=== PATIENT | male | born 1940 | race Caucasian/White ===

== ENCOUNTER 2020-11-16 11:23 | Inpatient (IN) ==
[2020-11-16] MEDS ORDERED: Acetaminophen 325 MG TABLET PO PRN (12:02)
[2020-11-16] MEDS ORDERED: Ondansetron 4 MG/2 ML VIAL IVP PRN (12:02)
[2020-11-16] MEDS ORDERED: Dextrose Gel 15 GM/37.5 ML TUBE PO PRN ×2 (12:05)
[2020-11-16] MEDS ORDERED: *HR* Dextrose 50 % in Water (Vial) 50 ML VIAL IVP PRN (12:05)
[2020-11-16] MEDS ORDERED: D5% in Water 1,000 ML IVC PRN (12:05)
[2020-11-16] MEDS: Ipratropium 1 PUFF INHALER IH SCH ×3 (15:16→23:51)
[2020-11-16] MEDS: *HR* Rivaroxaban 10 MG TABLET PO SCH (17:21)
[2020-11-16] MEDS: Insulin LISPRO 300 UNITS/3 ML VIAL SUBQ SCH (17:22)
[2020-11-16] MEDS: Topiramate 25 MG TABLET PO SCH (21:15)
[2020-11-16] MEDS: Mirtazapine 15 MG TABLET PO SCH (21:15)
[2020-11-16] MEDS: QUEtiapine Fumarate 25 MG TABLET PO SCH (21:15)
[2020-11-16] MEDS: Insulin DETEMIR 100 UNIT/ML X5UNITS SUBQ SCH (21:16)
[2020-11-17] MEDS: Ipratropium 1 PUFF INHALER IH SCH ×6 (04:16→23:44)
[2020-11-17 06:03] LABS: Eosinophils % 0.1 %; Hematocrit 35.4 % (37.5-50.1); Immature Granulocytes % 0.5 % (0-4); Lymphocytes # 0.5 K/mcL (0.6-4.6); Lymphocytes % 6.2 %; Mean Corpuscular HGB Conc 33.9 g/dL (31.6-35.5); Mean Corpuscular Hemoglobin 31.7 pg (28.0-33.3); Mean Corpuscular Volume 93.4 fL (83.0-100.0); Mean Platelet Volume 11.4 fL (9.4-12.4); Monocytes # 0.4 K/mcL (0.0-1.3); Monocytes % 4.5 %; Neutrophils # 7.3 K/mcL (1.6-8.9); Red Blood Count 3.79 M/mcL (4.19-5.50); Segmented Neutrophils % 88.7 %; White Blood Count 8.2 K/mcL (4.3-11.1)
[2020-11-17 06:05] LABS: Platelet Count 82 K/mcL (140-400)
[2020-11-17 06:22] LABS: Alanine Aminotransferase 14 Units/L (7-52); Albumin 2.4 g/dL (3.5-5.7); Albumin/Globulin Ratio 1.3 (1.1-2.2); Alkaline Phosphatase 84 Units/L (34-104); Aspartate Amino Transferase 10 Units/L (13-39); BUN/Creatinine Ratio 44 (6-26); Bilirubin,Total 0.7 mg/dL (0.3-1.0); Blood Urea Nitrogen 36 mg/dL (8-23); Carbon Dioxide 26 mEq/L (23-29); Chloride 106 mEq/L (98-107); Globulin 1.9 g/dL (2.4-3.5); Glucose 119 mg/dL (70-105); Magnesium 1.9 mg/dL (1.6-2.6); Osmolality,Calculated 289 (280-300); Potassium 3.9 mEq/L (3.5-5.1); Sodium 135 mEq/L (136-145); Total Protein 4.3 g/dL (6.4-8.9); eGFR For African Americans > 60 (> 60); eGFR For Non-African Americans > 60 (> 60)
[2020-11-17] MEDS: Topiramate 25 MG TABLET PO SCH ×2 (08:29→20:31)
[2020-11-17] MEDS: amLODIPine 5 MG TABLET PO SCH (08:29)
[2020-11-17] MEDS: Furosemide 20 MG TABLET PO SCH (08:29)
[2020-11-17] MEDS: Finasteride 5 MG TABLET PO SCH (08:29)
[2020-11-17] MEDS: Insulin LISPRO 300 UNITS/3 ML VIAL SUBQ SCH ×3 (08:29→17:15)
[2020-11-17] MEDS: Aspirin Enteric Coated 81 MG Tablet PO SCH (08:29)
[2020-11-17 11:35] LABS: C-Reactive Protein < 5 mg/L (Less than 10)
[2020-11-17 11:54] LABS: Ferritin 337 ng/mL (20-250)
[2020-11-17] MEDS: *HR* Rivaroxaban 10 MG TABLET PO SCH (17:15)
[2020-11-17] MEDS: Insulin DETEMIR 100 UNIT/ML X5UNITS SUBQ SCH (20:31)
[2020-11-17] MEDS: Mirtazapine 15 MG TABLET PO SCH (20:31)
[2020-11-17] MEDS: QUEtiapine Fumarate 25 MG TABLET PO SCH (20:31)
[2020-11-18] MEDS: Ipratropium 1 PUFF INHALER IH SCH ×5 (04:21→20:48)
[2020-11-18] MEDS: Insulin LISPRO 300 UNITS/3 ML VIAL SUBQ SCH (09:56)
[2020-11-18] MEDS: Furosemide 20 MG TABLET PO SCH (09:57)
[2020-11-18] MEDS: Aspirin Enteric Coated 81 MG Tablet PO SCH (09:57)
[2020-11-18] MEDS: Finasteride 5 MG TABLET PO SCH (09:57)
[2020-11-18] MEDS: Topiramate 25 MG TABLET PO SCH ×2 (09:57→22:29)
[2020-11-18] MEDS: amLODIPine 5 MG TABLET PO SCH (09:57)
[2020-11-18 12:22] LABS: Basophils % 0.1 %; Eosinophils # 0.1 K/mcL (0.0-0.6); Eosinophils % 0.7 %; Hematocrit 37.4 % (37.5-50.1); Hemoglobin 12.6 g/dL (12.9-16.9); Immature Granulocytes % 0.6 % (0-4); Lymphocytes # 0.5 K/mcL (0.6-4.6); Lymphocytes % 4.5 %; Mean Corpuscular HGB Conc 33.7 g/dL (31.6-35.5); Mean Corpuscular Hemoglobin 31.8 pg (28.0-33.3); Mean Corpuscular Volume 94.4 fL (83.0-100.0); Mean Platelet Volume 11.3 fL (9.4-12.4); Monocytes # 0.5 K/mcL (0.0-1.3); Monocytes % 4.3 %; Neutrophils # 9.7 K/mcL (1.6-8.9); Red Blood Count 3.96 M/mcL (4.19-5.50); Red Cell Distribution Width 13.1 % (11.5-14.5); Segmented Neutrophils % 89.8 %; White Blood Count 10.8 K/mcL (4.3-11.1)
[2020-11-18 12:23] LABS: Platelet Count 77 K/mcL (140-400)
[2020-11-18 12:38] LABS: BUN/Creatinine Ratio 38 (6-26); Blood Urea Nitrogen 31 mg/dL (8-23); Calcium 7.7 mg/dL (8.6-10.3); Carbon Dioxide 24 mEq/L (23-29); Chloride 106 mEq/L (98-107); Glucose 224 mg/dL (70-105); Osmolality,Calculated 294 (280-300); Potassium 4.1 mEq/L (3.5-5.1); Sodium 135 mEq/L (136-145); eGFR For African Americans > 60 (> 60); eGFR For Non-African Americans > 60 (> 60)
[2020-11-18] MEDS: QUEtiapine Fumarate 25 MG TABLET PO SCH (22:29)
[2020-11-18] MEDS: Mirtazapine 15 MG TABLET PO SCH (22:29)
[2020-11-18] MEDS: Insulin DETEMIR 100 UNIT/ML X5UNITS SUBQ SCH (22:32)
[2020-11-18] MEDS: *HR* Rivaroxaban 10 MG TABLET PO SCH (22:32)
[2020-11-19] MEDS: Ipratropium 1 PUFF INHALER IH SCH ×4 (03:57→12:54)
[2020-11-19] MEDS: Insulin LISPRO 300 UNITS/3 ML VIAL SUBQ SCH ×4 (07:24→12:31)
[2020-11-19] MEDS: Aspirin Enteric Coated 81 MG Tablet PO SCH (07:43)
[2020-11-19] MEDS: amLODIPine 5 MG TABLET PO SCH (07:43)
[2020-11-19] MEDS: Furosemide 20 MG TABLET PO SCH (07:43)
[2020-11-19] MEDS: Topiramate 25 MG TABLET PO SCH (07:43)
[2020-11-19] MEDS: Finasteride 5 MG TABLET PO SCH (07:43)
[2020-11-19 11:43] VITALS: BP 124/63
[2020-11-19] MEDS ORDERED: polyethylene glycoL 3350 17 GM POWD.PACK PO SCH (14:31)
== END 2020-11-19 15:22 | disposition other institution (70) | DRG 177 ==
LOC: INPGRE 14:26
PROVIDERS: ADMIT Family Medicine; ATTEND Family Medicine

== ENCOUNTER 2020-11-18 14:22 | Inpatient (IN) ==
[2020-11-19] MEDS: *HR* Rivaroxaban 10 MG TABLET PO SCH (17:45)
[2020-11-19] MEDS: *HR* Metformin 500 MG TABLET PO SCH (20:21)
[2020-11-19] MEDS: Mirtazapine 15 MG TABLET PO SCH (20:21)
[2020-11-19] MEDS: Topiramate 25 MG TABLET PO SCH (20:22)
[2020-11-20 06:21] LABS: Basophils % 0.1 %; Eosinophils # 0.1 K/mcL (0.0-0.6); Eosinophils % 1.7 %; Hematocrit 35.9 % (37.5-50.1); Hemoglobin 11.9 g/dL (12.9-16.9); Immature Granulocytes % 0.6 % (0-4); Lymphocytes # 0.5 K/mcL (0.6-4.6); Lymphocytes % 6.3 %; Mean Corpuscular HGB Conc 33.1 g/dL (31.6-35.5); Mean Corpuscular Hemoglobin 31.2 pg (28.0-33.3); Mean Platelet Volume 11.6 fL (9.4-12.4); Monocytes # 0.4 K/mcL (0.0-1.3); Monocytes % 4.3 %; Red Blood Count 3.82 M/mcL (4.19-5.50); Red Cell Distribution Width 13.5 % (11.5-14.5); White Blood Count 8.1 K/mcL (4.3-11.1)
[2020-11-20 06:32] LABS: Platelet Count 69 K/mcL (140-400)
[2020-11-20 06:34] LABS: Platelet Estimate Decreased (Normal)
[2020-11-20 06:42] LABS: BUN/Creatinine Ratio 31 (6-26); Blood Urea Nitrogen 23 mg/dL (8-23); Calcium 7.9 mg/dL (8.6-10.3); Carbon Dioxide 25 mEq/L (23-29); Chloride 106 mEq/L (98-107); Glucose 109 mg/dL (70-105); Osmolality,Calculated 286 (280-300); Potassium 3.9 mEq/L (3.5-5.1); Sodium 136 mEq/L (136-145); eGFR For African Americans > 60 (> 60); eGFR For Non-African Americans > 60 (> 60)
[2020-11-20] MEDS: polyethylene glycoL 3350 17 GM POWD.PACK PO SCH (09:32)
[2020-11-20] MEDS: Aspirin Enteric Coated 81 MG Tablet PO SCH (09:33)
[2020-11-20] MEDS: amLODIPine 5 MG TABLET PO SCH (09:33)
[2020-11-20] MEDS: Topiramate 25 MG TABLET PO SCH ×2 (09:33→20:53)
[2020-11-20] MEDS: Multivit/Ca/Min/Fe/FA 1 TAB TABLET PO SCH (09:34)
[2020-11-20] MEDS: Furosemide 20 MG TABLET PO SCH (09:34)
[2020-11-20] MEDS: *HR* Metformin 500 MG TABLET PO SCH ×2 (09:34→20:54)
[2020-11-20] MEDS: Finasteride 5 MG TABLET PO SCH (09:34)
[2020-11-20] MEDS: *HR* Rivaroxaban 10 MG TABLET PO SCH (16:50)
[2020-11-20] MEDS: Mirtazapine 15 MG TABLET PO SCH (20:53)
[2020-11-21] MEDS: *HR* Metformin 500 MG TABLET PO SCH ×2 (08:56→20:52)
[2020-11-21] MEDS: amLODIPine 5 MG TABLET PO SCH (08:56)
[2020-11-21] MEDS: Multivit/Ca/Min/Fe/FA 1 TAB TABLET PO SCH (08:56)
[2020-11-21] MEDS: Aspirin Enteric Coated 81 MG Tablet PO SCH (08:56)
[2020-11-21] MEDS: Topiramate 25 MG TABLET PO SCH ×2 (08:56→20:52)
[2020-11-21] MEDS: Finasteride 5 MG TABLET PO SCH (08:56)
[2020-11-21] MEDS: Furosemide 20 MG TABLET PO SCH (08:56)
[2020-11-21] MEDS: polyethylene glycoL 3350 17 GM POWD.PACK PO SCH (08:57)
[2020-11-21] MEDS: *HR* Rivaroxaban 10 MG TABLET PO SCH (17:04)
[2020-11-21] MEDS: Mirtazapine 15 MG TABLET PO SCH (20:51)
[2020-11-21] MEDS: Budesonide/Formoterol 160/4.5 1 PUFF INH IH SCH (21:17)
[2020-11-22] MEDS: *HR* Metformin 500 MG TABLET PO SCH ×2 (09:24→21:36)
[2020-11-22] MEDS: Topiramate 25 MG TABLET PO SCH ×2 (09:24→21:37)
[2020-11-22] MEDS: Multivit/Ca/Min/Fe/FA 1 TAB TABLET PO SCH (09:24)
[2020-11-22] MEDS: Aspirin Enteric Coated 81 MG Tablet PO SCH (09:24)
[2020-11-22] MEDS: polyethylene glycoL 3350 17 GM POWD.PACK PO SCH (09:27)
[2020-11-22] MEDS: Furosemide 20 MG TABLET PO SCH (09:27)
[2020-11-22] MEDS: Finasteride 5 MG TABLET PO SCH (09:27)
[2020-11-22] MEDS: amLODIPine 5 MG TABLET PO SCH (09:27)
[2020-11-22] MEDS: Budesonide/Formoterol 160/4.5 1 PUFF INH IH SCH ×2 (10:19→20:24)
[2020-11-22] MEDS: *HR* Rivaroxaban 10 MG TABLET PO SCH (17:13)
[2020-11-22] MEDS: Mirtazapine 15 MG TABLET PO SCH (21:38)
[2020-11-23] MEDS: *HR* Metformin 500 MG TABLET PO SCH ×2 (09:00→21:57)
[2020-11-23] MEDS: amLODIPine 5 MG TABLET PO SCH (09:01)
[2020-11-23] MEDS: Topiramate 25 MG TABLET PO SCH ×2 (09:01→21:57)
[2020-11-23] MEDS: Multivit/Ca/Min/Fe/FA 1 TAB TABLET PO SCH (09:01)
[2020-11-23] MEDS: Finasteride 5 MG TABLET PO SCH (09:01)
[2020-11-23] MEDS: polyethylene glycoL 3350 17 GM POWD.PACK PO SCH (09:02)
[2020-11-23] MEDS: Furosemide 20 MG TABLET PO SCH (09:02)
[2020-11-23] MEDS: Aspirin Enteric Coated 81 MG Tablet PO SCH (09:02)
[2020-11-23] MEDS: Budesonide/Formoterol 160/4.5 1 PUFF INH IH SCH ×2 (11:51→21:19)
[2020-11-23] MEDS: *HR* Rivaroxaban 10 MG TABLET PO SCH (16:47)
[2020-11-23] MEDS: Mirtazapine 15 MG TABLET PO SCH (21:58)
[2020-11-24] MEDS: polyethylene glycoL 3350 17 GM POWD.PACK PO SCH (09:17)
[2020-11-24] MEDS: amLODIPine 5 MG TABLET PO SCH (09:18)
[2020-11-24] MEDS: Finasteride 5 MG TABLET PO SCH (09:18)
[2020-11-24] MEDS: Topiramate 25 MG TABLET PO SCH ×2 (09:18→21:28)
[2020-11-24] MEDS: Multivit/Ca/Min/Fe/FA 1 TAB TABLET PO SCH (09:18)
[2020-11-24] MEDS: Aspirin Enteric Coated 81 MG Tablet PO SCH (09:18)
[2020-11-24] MEDS: Furosemide 20 MG TABLET PO SCH (09:18)
[2020-11-24] MEDS: *HR* Metformin 500 MG TABLET PO SCH ×2 (09:19→21:28)
[2020-11-24] MEDS: Budesonide/Formoterol 160/4.5 1 PUFF INH IH SCH ×2 (10:48→21:47)
[2020-11-24] MEDS: *HR* Rivaroxaban 10 MG TABLET PO SCH (17:32)
[2020-11-24 19:07] LABS: Basophils % 0.2 %; Eosinophils # 0.1 K/mcL (0.0-0.6); Eosinophils % 1.1 %; Hematocrit 32.7 % (37.5-50.1); Hemoglobin 10.9 g/dL (12.9-16.9); Immature Granulocytes % 0.3 % (0-4); Lymphocytes # 0.3 K/mcL (0.6-4.6); Lymphocytes % 4.7 %; Mean Corpuscular HGB Conc 33.3 g/dL (31.6-35.5); Mean Corpuscular Hemoglobin 31.5 pg (28.0-33.3); Mean Corpuscular Volume 94.5 fL (83.0-100.0); Mean Platelet Volume 11.1 fL (9.4-12.4); Monocytes # 0.5 K/mcL (0.0-1.3); Monocytes % 7.2 %; Neutrophils # 5.5 K/mcL (1.6-8.9); Red Blood Count 3.46 M/mcL (4.19-5.50); Red Cell Distribution Width 13.5 % (11.5-14.5); Segmented Neutrophils % 86.5 %; White Blood Count 6.4 K/mcL (4.3-11.1)
[2020-11-24 19:09] LABS: Platelet Count 54 K/mcL (140-400)
[2020-11-24] MEDS: Mirtazapine 15 MG TABLET PO SCH (21:29)
[2020-11-25] MEDS: Budesonide/Formoterol 160/4.5 1 PUFF INH IH SCH (09:23)
[2020-11-25 09:48] LABS: ABG Base Excess -3 mEq/L (-2 to 3); ABG HCO3 20 mEq/L (21-27); ABG Oxygen Saturation 94 % (95-98); ABG PCO2 30 mmHg (35-45); ABG PH 7.43 pH Units (7.32-7.45); ABG PO2 67 mmHg (85-104); ABG TCO2 21 mEq/L (20-26)
[2020-11-25 10:08] LABS: Hematocrit 33.1 % (37.5-50.1); Mean Corpuscular HGB Conc 33.2 g/dL (31.6-35.5); Mean Corpuscular Hemoglobin 30.9 pg (28.0-33.3); Mean Platelet Volume 11.5 fL (9.4-12.4); Red Blood Count 3.56 M/mcL (4.19-5.50); Red Cell Distribution Width 13.4 % (11.5-14.5); White Blood Count 5.2 K/mcL (4.3-11.1)
[2020-11-25 10:10] LABS: Platelet Count 53 K/mcL (140-400)
[2020-11-25 10:20] LABS: Alanine Aminotransferase 12 Units/L (7-52); Albumin 2.4 g/dL (3.5-5.7); Albumin/Globulin Ratio 0.9 (1.1-2.2); Alkaline Phosphatase 84 Units/L (34-104); Aspartate Amino Transferase 11 Units/L (13-39); BUN/Creatinine Ratio 21 (6-26); Bilirubin,Total 0.9 mg/dL (0.3-1.0); Blood Urea Nitrogen 15 mg/dL (8-23); Calcium 8.1 mg/dL (8.6-10.3); Carbon Dioxide 21 mEq/L (23-29); Chloride 104 mEq/L (98-107); Globulin 2.6 g/dL (2.4-3.5); Glucose 214 mg/dL (70-105); Osmolality,Calculated 283 (280-300); Potassium 3.5 mEq/L (3.5-5.1); Sodium 133 mEq/L (136-145); eGFR For African Americans > 60 (> 60); eGFR For Non-African Americans > 60 (> 60)
[2020-11-25 10:29] LABS: Troponin I 0.06 ng/mL (< 0.04)
[2020-11-25] MEDS: Finasteride 5 MG TABLET PO SCH (10:50)
[2020-11-25] MEDS: *HR* Metformin 500 MG TABLET PO SCH (10:51)
[2020-11-25] MEDS: Multivit/Ca/Min/Fe/FA 1 TAB TABLET PO SCH (10:51)
[2020-11-25] MEDS: amLODIPine 5 MG TABLET PO SCH (10:52)
[2020-11-25] MEDS: Furosemide 20 MG TABLET PO SCH (10:52)
[2020-11-25] MEDS: Topiramate 25 MG TABLET PO SCH (10:52)
[2020-11-25] MEDS: polyethylene glycoL 3350 17 GM POWD.PACK PO SCH (10:53)
[2020-11-25] MEDS ORDERED: Dexamethasone 4 MG/ML VIAL IVP SCH (11:45)
[2020-11-25] MEDS: *HR* Rivaroxaban 10 MG TABLET PO SCH (11:46)
[2020-11-25 11:57] VITALS: BP 117/76
[2020-11-25] MEDS ORDERED: levoFLOXacin 750 MG/150 ML 750 MG/150 ML BAG IVPB SCH (12:00)
== END 2020-11-25 13:10 | disposition short-term general hospital (02) | DRG 177 ==
LOC: INPGRE 11-19 15:28
PROVIDERS: ADMIT Family Medicine; ATTEND Family Medicine

== ENCOUNTER 2020-12-08 10:40 | Inpatient (IN) ==
[2020-12-08] MEDS ORDERED: Acetaminophen 325 MG TABLET PO PRN (16:41)
[2020-12-08] MEDS ORDERED: Ondansetron 4 MG/2 ML VIAL IVP PRN (16:41)
[2020-12-08] MEDS ORDERED: Naloxone 0.4 MG/ML INJ IVP PRN (16:41)
[2020-12-08] MEDS ORDERED: *HR* HYDROcodone/Acet 5/325 mg TABLET PO PRN (16:41)
[2020-12-08] MEDS ORDERED: Dextrose Gel 15 GM/37.5 ML TUBE PO PRN ×2 (18:04)
[2020-12-08] MEDS ORDERED: D5% in Water 1,000 ML IVC PRN (18:04)
[2020-12-08] MEDS ORDERED: *HR* Dextrose 50 % in Water (Vial) 50 ML VIAL IVP PRN (18:04)
[2020-12-08] MEDS: Insulin LISPRO 300 UNITS/3 ML VIAL SUBQ SCH (20:33)
[2020-12-08] MEDS: Mirtazapine 15 MG TABLET PO SCH (20:34)
[2020-12-08] MEDS: *HR* Metformin 500 MG TABLET PO SCH (20:36)
[2020-12-08] MEDS: Ipratropium 1 PUFF INHALER IH SCH (20:54)
[2020-12-08] MEDS: Budesonide/Formoterol 160/4.5 1 PUFF INH IH SCH (20:54)
[2020-12-08] MEDS ORDERED: *HR* Metoprolol 5 MG/5 ML VIAL IVP PRN (21:36)
[2020-12-09] MEDS: Ipratropium 1 PUFF INHALER IH SCH ×7 (00:03→23:58)
[2020-12-09 05:05] LABS: Hematocrit 31.2 % (37.5-50.1); Hemoglobin 10.3 g/dL (12.9-16.9); Mean Corpuscular Volume 96.9 fL (83.0-100.0); Mean Platelet Volume 11.9 fL (9.4-12.4); Platelet Count 132 K/mcL (140-400); Red Blood Count 3.22 M/mcL (4.19-5.50); Red Cell Distribution Width 16.4 % (11.5-14.5); White Blood Count 13.1 K/mcL (4.3-11.1)
[2020-12-09 05:21] LABS: BUN/Creatinine Ratio 51 (6-26); Blood Urea Nitrogen 35 mg/dL (8-23); Calcium 8.6 mg/dL (8.6-10.3); Carbon Dioxide 34 mEq/L (23-29); Chloride 101 mEq/L (98-107); Glucose 71 mg/dL (70-105); Magnesium 1.9 mg/dL (1.6-2.6); Osmolality,Calculated 294 (280-300); Potassium 4.3 mEq/L (3.5-5.1); Sodium 139 mEq/L (136-145); eGFR For African Americans > 60 (> 60); eGFR For Non-African Americans > 60 (> 60)
[2020-12-09] MEDS: *HR* Enoxaparin 40 MG/0.4 ML SYRINGE SQ SCH (05:28)
[2020-12-09] MEDS: Finasteride 5 MG TABLET PO SCH (07:35)
[2020-12-09] MEDS: *HR* Metformin 500 MG TABLET PO SCH ×2 (07:35→17:27)
[2020-12-09] MEDS: Furosemide 20 MG TABLET PO SCH (07:35)
[2020-12-09] MEDS: Aspirin Enteric Coated 81 MG Tablet PO SCH (07:35)
[2020-12-09] MEDS: Cholecalciferol (D-3) 1,000 UNIT (25MCG) TABLET PO SCH (07:35)
[2020-12-09] MEDS: Insulin LISPRO 300 UNITS/3 ML VIAL SUBQ SCH ×4 (07:35→20:09)
[2020-12-09] MEDS: Budesonide/Formoterol 160/4.5 1 PUFF INH IH SCH ×2 (07:59→19:59)
[2020-12-09 11:17] LABS: C-Reactive Protein < 5 mg/L (Less than 10)
[2020-12-09 11:35] LABS: Ferritin 206 ng/mL (20-250)
[2020-12-09] MEDS: dexAMETHasone 4 MG TABLET PO SCH (13:19)
[2020-12-09] MEDS: Mirtazapine 15 MG TABLET PO SCH (20:09)
[2020-12-10] MEDS: Ipratropium 1 PUFF INHALER IH SCH ×4 (03:57→14:58)
[2020-12-10 04:44] LABS: Hematocrit 31.7 % (37.5-50.1); Hemoglobin 10.3 g/dL (12.9-16.9); Mean Corpuscular HGB Conc 32.5 g/dL (31.6-35.5); Mean Corpuscular Hemoglobin 31.5 pg (28.0-33.3); Mean Corpuscular Volume 96.9 fL (83.0-100.0); Mean Platelet Volume 11.7 fL (9.4-12.4); Platelet Count 125 K/mcL (140-400); Red Blood Count 3.27 M/mcL (4.19-5.50); Red Cell Distribution Width 16.7 % (11.5-14.5); White Blood Count 12.7 K/mcL (4.3-11.1)
[2020-12-10 05:00] LABS: BUN/Creatinine Ratio 40 (6-26); Blood Urea Nitrogen 32 mg/dL (8-23); Calcium 8.6 mg/dL (8.6-10.3); Carbon Dioxide 29 mEq/L (23-29); Chloride 100 mEq/L (98-107); Glucose 152 mg/dL (70-105); Osmolality,Calculated 292 (280-300); Potassium 4.8 mEq/L (3.5-5.1); Sodium 136 mEq/L (136-145); eGFR For African Americans > 60 (> 60); eGFR For Non-African Americans > 60 (> 60)
[2020-12-10] MEDS: *HR* Enoxaparin 40 MG/0.4 ML SYRINGE SQ SCH (06:02)
[2020-12-10] MEDS: Budesonide/Formoterol 160/4.5 1 PUFF INH IH SCH (07:18)
[2020-12-10] MEDS: Insulin LISPRO 300 UNITS/3 ML VIAL SUBQ SCH ×3 (09:06→18:16)
[2020-12-10] MEDS: Aspirin Enteric Coated 81 MG Tablet PO SCH (09:33)
[2020-12-10] MEDS: *HR* Metformin 500 MG TABLET PO SCH ×2 (09:33→18:14)
[2020-12-10] MEDS: dexAMETHasone 4 MG TABLET PO SCH (09:33)
[2020-12-10] MEDS: Finasteride 5 MG TABLET PO SCH (09:33)
[2020-12-10] MEDS: Cholecalciferol (D-3) 1,000 UNIT (25MCG) TABLET PO SCH (09:33)
[2020-12-10] MEDS: Furosemide 20 MG TABLET PO SCH (09:36)
[2020-12-10 18:55] VITALS: BP 129/62
== END 2020-12-10 18:37 | disposition other institution (70) | DRG 177 ==
LOC: INPGRE 16:54
PROVIDERS: ADMIT Family Medicine; ATTEND Family Medicine

== ENCOUNTER 2020-12-10 18:24 | Inpatient (IN) ==
[2020-12-10] MEDS ORDERED: Acetaminophen 325 MG TABLET PO PRN (18:39)
[2020-12-10] MEDS ORDERED: *HR* HYDROcodone/Acet 5/325 mg TABLET PO PRN (18:43)
[2020-12-10] MEDS ORDERED: *HR* Metoprolol 5 MG/5 ML VIAL IVP PRN (18:46)
[2020-12-10] MEDS ORDERED: Ondansetron 4 MG/2 ML VIAL IVP PRN (18:50)
[2020-12-10] MEDS: Ipratropium 1 PUFF INHALER IH SCH (20:40)
[2020-12-10] MEDS: Budesonide/Formoterol 160/4.5 1 PUFF INH IH SCH (20:41)
[2020-12-10] MEDS: Insulin LISPRO 300 UNITS/3 ML VIAL SUBQ SCH (20:59)
[2020-12-10] MEDS: *HR* Metformin 500 MG TABLET PO SCH (21:00)
[2020-12-10] MEDS: Mirtazapine 15 MG TABLET PO SCH (21:00)
[2020-12-11] MEDS: Ipratropium 1 PUFF INHALER IH SCH ×4 (00:05→12:22)
[2020-12-11] MEDS: *HR* Enoxaparin 40 MG/0.4 ML SYRINGE SQ SCH (04:55)
[2020-12-11] MEDS: Insulin LISPRO 300 UNITS/3 ML VIAL SUBQ SCH ×4 (07:54→20:50)
[2020-12-11] MEDS: Budesonide/Formoterol 160/4.5 1 PUFF INH IH SCH ×2 (07:56→19:18)
[2020-12-11] MEDS ORDERED: dexAMETHasone 4 MG TABLET PO SCH (09:00)
[2020-12-11] MEDS: Cholecalciferol (D-3) 1,000 UNIT (25MCG) TABLET PO SCH (09:34)
[2020-12-11] MEDS: Furosemide 20 MG TABLET PO SCH (09:34)
[2020-12-11] MEDS: Aspirin Enteric Coated 81 MG Tablet PO SCH (09:34)
[2020-12-11] MEDS: *HR* Metformin 500 MG TABLET PO SCH ×2 (09:34→20:48)
[2020-12-11] MEDS: Finasteride 5 MG TABLET PO SCH (09:40)
[2020-12-11] MEDS: Mirtazapine 15 MG TABLET PO SCH (20:49)
[2020-12-12 06:32] LABS: Hematocrit 31.6 % (37.5-50.1); Hemoglobin 10.2 g/dL (12.9-16.9); Mean Corpuscular HGB Conc 32.3 g/dL (31.6-35.5); Mean Corpuscular Hemoglobin 31.4 pg (28.0-33.3); Mean Corpuscular Volume 97.2 fL (83.0-100.0); Mean Platelet Volume 11.4 fL (9.4-12.4); Platelet Count 121 K/mcL (140-400); Red Blood Count 3.25 M/mcL (4.19-5.50); Red Cell Distribution Width 17.3 % (11.5-14.5); White Blood Count 10.4 K/mcL (4.3-11.1)
[2020-12-12 06:51] LABS: BUN/Creatinine Ratio 45 (6-26); Blood Urea Nitrogen 28 mg/dL (8-23); Calcium 8.6 mg/dL (8.6-10.3); Carbon Dioxide 31 mEq/L (23-29); Chloride 99 mEq/L (98-107); Glucose 89 mg/dL (70-105); Osmolality,Calculated 285 (280-300); Sodium 135 mEq/L (136-145); eGFR For African Americans > 60 (> 60); eGFR For Non-African Americans > 60 (> 60)
[2020-12-12] MEDS: *HR* Enoxaparin 40 MG/0.4 ML SYRINGE SQ SCH (06:53)
[2020-12-12 09:12] LABS: C-Reactive Protein < 5 mg/L (Less than 10)
[2020-12-12 09:25] LABS: Ferritin 101 ng/mL (20-250)
[2020-12-12] MEDS: Furosemide 20 MG TABLET PO SCH (09:25)
[2020-12-12] MEDS: dexAMETHasone 4 MG TABLET PO SCH (09:25)
[2020-12-12] MEDS: Aspirin Enteric Coated 81 MG Tablet PO SCH (09:25)
[2020-12-12] MEDS: Cholecalciferol (D-3) 1,000 UNIT (25MCG) TABLET PO SCH (09:25)
[2020-12-12] MEDS: *HR* Metformin 500 MG TABLET PO SCH ×2 (09:25→21:46)
[2020-12-12] MEDS: Finasteride 5 MG TABLET PO SCH (09:26)
[2020-12-12] MEDS: Insulin LISPRO 300 UNITS/3 ML VIAL SUBQ SCH ×4 (09:26→21:47)
[2020-12-12] MEDS: Budesonide/Formoterol 160/4.5 1 PUFF INH IH SCH ×2 (09:47→20:36)
[2020-12-12] MEDS: Mirtazapine 15 MG TABLET PO SCH (21:47)
[2020-12-13] MEDS: *HR* Enoxaparin 40 MG/0.4 ML SYRINGE SQ SCH (06:36)
[2020-12-13] MEDS: *HR* Metformin 500 MG TABLET PO SCH ×2 (08:23→22:26)
[2020-12-13] MEDS: Furosemide 20 MG TABLET PO SCH (08:23)
[2020-12-13] MEDS: Cholecalciferol (D-3) 1,000 UNIT (25MCG) TABLET PO SCH (08:23)
[2020-12-13] MEDS: dexAMETHasone 4 MG TABLET PO SCH (08:23)
[2020-12-13] MEDS: Aspirin Enteric Coated 81 MG Tablet PO SCH (08:23)
[2020-12-13] MEDS: Finasteride 5 MG TABLET PO SCH (08:24)
[2020-12-13] MEDS: Insulin LISPRO 300 UNITS/3 ML VIAL SUBQ SCH ×4 (08:26→22:27)
[2020-12-13] MEDS: Budesonide/Formoterol 160/4.5 1 PUFF INH IH SCH ×2 (10:05→22:19)
[2020-12-13] MEDS: Ipratropium 1 PUFF INHALER IH PRN ×2 (10:09→22:19)
[2020-12-13] MEDS: Mirtazapine 15 MG TABLET PO SCH (22:26)
[2020-12-14] MEDS: *HR* Enoxaparin 40 MG/0.4 ML SYRINGE SQ SCH (06:04)
[2020-12-14] MEDS: Insulin LISPRO 300 UNITS/3 ML VIAL SUBQ SCH ×4 (08:51→20:56)
[2020-12-14] MEDS: *HR* Metformin 500 MG TABLET PO SCH ×2 (08:52→21:09)
[2020-12-14] MEDS: Cholecalciferol (D-3) 1,000 UNIT (25MCG) TABLET PO SCH (08:52)
[2020-12-14] MEDS: Aspirin Enteric Coated 81 MG Tablet PO SCH (08:52)
[2020-12-14] MEDS: dexAMETHasone 4 MG TABLET PO SCH (08:52)
[2020-12-14] MEDS: Finasteride 5 MG TABLET PO SCH (08:52)
[2020-12-14] MEDS: Furosemide 20 MG TABLET PO SCH (08:52)
[2020-12-14] MEDS: Budesonide/Formoterol 160/4.5 1 PUFF INH IH SCH ×2 (10:17→21:09)
[2020-12-14] MEDS: Mirtazapine 15 MG TABLET PO SCH (21:09)
[2020-12-14] MEDS: Melatonin 3 MG TABLET PO PRN (21:12)
[2020-12-15] MEDS: *HR* Enoxaparin 40 MG/0.4 ML SYRINGE SQ SCH (05:28)
[2020-12-15 06:25] LABS: Hematocrit 30.6 % (37.5-50.1); Hemoglobin 9.9 g/dL (12.9-16.9); Mean Corpuscular HGB Conc 32.4 g/dL (31.6-35.5); Mean Platelet Volume 12.1 fL (9.4-12.4); Platelet Count 103 K/mcL (140-400); Red Blood Count 3.09 M/mcL (4.19-5.50); Red Cell Distribution Width 17.7 % (11.5-14.5); White Blood Count 9.2 K/mcL (4.3-11.1)
[2020-12-15 06:43] LABS: Alanine Aminotransferase 22 Units/L (7-52); Albumin 2.6 g/dL (3.5-5.7); Albumin/Globulin Ratio 1.6 (1.1-2.2); Alkaline Phosphatase 69 Units/L (34-104); Aspartate Amino Transferase 13 Units/L (13-39); BUN/Creatinine Ratio 38 (6-26); Bilirubin,Total 0.7 mg/dL (0.3-1.0); Blood Urea Nitrogen 21 mg/dL (8-23); Calcium 8.5 mg/dL (8.6-10.3); Carbon Dioxide 30 mEq/L (23-29); Chloride 100 mEq/L (98-107); Globulin 1.6 g/dL (2.4-3.5); Glucose 105 mg/dL (70-105); Magnesium 1.5 mg/dL (1.6-2.6); Osmolality,Calculated 287 (280-300); Potassium 3.9 mEq/L (3.5-5.1); Sodium 137 mEq/L (136-145); Total Protein 4.2 g/dL (6.4-8.9); eGFR For African Americans > 60 (> 60); eGFR For Non-African Americans > 60 (> 60)
[2020-12-15] MEDS: Finasteride 5 MG TABLET PO SCH (08:28)
[2020-12-15] MEDS: *HR* Metformin 500 MG TABLET PO SCH ×2 (08:28→21:14)
[2020-12-15] MEDS: Cholecalciferol (D-3) 1,000 UNIT (25MCG) TABLET PO SCH (08:28)
[2020-12-15] MEDS: dexAMETHasone 4 MG TABLET PO SCH (08:28)
[2020-12-15] MEDS: Aspirin Enteric Coated 81 MG Tablet PO SCH (08:28)
[2020-12-15] MEDS: Furosemide 20 MG TABLET PO SCH (08:28)
[2020-12-15] MEDS: Insulin LISPRO 300 UNITS/3 ML VIAL SUBQ SCH ×3 (08:28→17:34)
[2020-12-15] MEDS: Budesonide/Formoterol 160/4.5 1 PUFF INH IH SCH ×2 (09:22→20:24)
[2020-12-15 12:13] LABS: C-Reactive Protein < 5 mg/L (Less than 10)
[2020-12-15 12:29] LABS: Ferritin 117 ng/mL (20-250)
[2020-12-15] MEDS: Sennosides 8.6 MG TABLET PO SCH ×2 (15:55→21:16)
[2020-12-15] MEDS: Ipratropium 1 PUFF INHALER IH PRN (20:24)
[2020-12-15] MEDS: Mirtazapine 15 MG TABLET PO SCH (21:16)
[2020-12-16] MEDS: Insulin LISPRO 300 UNITS/3 ML VIAL SUBQ SCH ×5 (05:48→22:17)
[2020-12-16] MEDS: *HR* Enoxaparin 40 MG/0.4 ML SYRINGE SQ SCH (05:52)
[2020-12-16] MEDS: Aspirin Enteric Coated 81 MG Tablet PO SCH (09:39)
[2020-12-16] MEDS: dexAMETHasone 4 MG TABLET PO SCH (09:39)
[2020-12-16] MEDS: Furosemide 20 MG TABLET PO SCH (09:39)
[2020-12-16] MEDS: Finasteride 5 MG TABLET PO SCH (09:39)
[2020-12-16] MEDS: Sennosides 8.6 MG TABLET PO SCH ×2 (09:39→22:19)
[2020-12-16] MEDS: Cholecalciferol (D-3) 1,000 UNIT (25MCG) TABLET PO SCH (09:40)
[2020-12-16] MEDS: *HR* Metformin 500 MG TABLET PO SCH ×2 (09:40→22:17)
[2020-12-16] MEDS: Budesonide/Formoterol 160/4.5 1 PUFF INH IH SCH ×2 (09:45→20:22)
[2020-12-16] MEDS: Mirtazapine 15 MG TABLET PO SCH (22:18)
[2020-12-16] MEDS: Melatonin 3 MG TABLET PO PRN (22:19)
[2020-12-16] MEDS: Nystatin Ointment 15 GM TUBE TP SCH (22:20)
[2020-12-17] MEDS: *HR* Enoxaparin 40 MG/0.4 ML SYRINGE SQ SCH (06:01)
[2020-12-17] MEDS: Budesonide/Formoterol 160/4.5 1 PUFF INH IH SCH ×2 (07:53→21:48)
[2020-12-17] MEDS: Insulin LISPRO 300 UNITS/3 ML VIAL SUBQ SCH ×4 (08:08→22:49)
[2020-12-17] MEDS: Sennosides 8.6 MG TABLET PO SCH ×2 (08:10→20:28)
[2020-12-17] MEDS: dexAMETHasone 4 MG TABLET PO SCH (08:10)
[2020-12-17] MEDS: Cholecalciferol (D-3) 1,000 UNIT (25MCG) TABLET PO SCH (08:10)
[2020-12-17] MEDS: Aspirin Enteric Coated 81 MG Tablet PO SCH (08:10)
[2020-12-17] MEDS: Furosemide 20 MG TABLET PO SCH (08:10)
[2020-12-17] MEDS: Finasteride 5 MG TABLET PO SCH (08:10)
[2020-12-17] MEDS: *HR* Metformin 500 MG TABLET PO SCH ×2 (08:10→20:29)
[2020-12-17] MEDS: Nystatin Ointment 15 GM TUBE TP SCH ×2 (08:11→20:31)
[2020-12-17] MEDS: Melatonin 3 MG TABLET PO PRN (20:28)
[2020-12-17] MEDS: Mirtazapine 15 MG TABLET PO SCH (20:28)
[2020-12-18] MEDS: *HR* Enoxaparin 40 MG/0.4 ML SYRINGE SQ SCH (06:09)
[2020-12-18] MEDS: Insulin LISPRO 300 UNITS/3 ML VIAL SUBQ SCH ×4 (07:50→22:19)
[2020-12-18] MEDS: Budesonide/Formoterol 160/4.5 1 PUFF INH IH SCH ×2 (08:09→20:09)
[2020-12-18] MEDS: Ipratropium 1 PUFF INHALER IH PRN (08:10)
[2020-12-18] MEDS: Furosemide 20 MG TABLET PO SCH (10:28)
[2020-12-18] MEDS: *HR* Metformin 500 MG TABLET PO SCH ×2 (10:28→22:18)
[2020-12-18] MEDS: Aspirin Enteric Coated 81 MG Tablet PO SCH (10:29)
[2020-12-18] MEDS: Finasteride 5 MG TABLET PO SCH (10:29)
[2020-12-18] MEDS: Cholecalciferol (D-3) 1,000 UNIT (25MCG) TABLET PO SCH (10:29)
[2020-12-18] MEDS: Sennosides 8.6 MG TABLET PO SCH ×2 (10:29→22:18)
[2020-12-18] MEDS: Nystatin Ointment 15 GM TUBE TP SCH ×2 (10:39→22:19)
[2020-12-18] MEDS: dexAMETHasone 4 MG TABLET PO SCH (10:43)
[2020-12-18] MEDS: Melatonin 3 MG TABLET PO PRN (22:18)
[2020-12-18] MEDS: Mirtazapine 15 MG TABLET PO SCH (22:18)
[2020-12-19] MEDS: *HR* Enoxaparin 40 MG/0.4 ML SYRINGE SQ SCH (05:50)
[2020-12-19 06:14] LABS: Hematocrit 33.7 % (37.5-50.1); Hemoglobin 10.7 g/dL (12.9-16.9); Mean Corpuscular HGB Conc 31.8 g/dL (31.6-35.5); Mean Corpuscular Hemoglobin 31.8 pg (28.0-33.3); Mean Corpuscular Volume 100.3 fL (83.0-100.0); Mean Platelet Volume 12.4 fL (9.4-12.4); Red Blood Count 3.36 M/mcL (4.19-5.50); Red Cell Distribution Width 17.9 % (11.5-14.5); White Blood Count 6.9 K/mcL (4.3-11.1)
[2020-12-19 06:20] LABS: Platelet Count 73 K/mcL (140-400)
[2020-12-19 06:29] LABS: BUN/Creatinine Ratio 37 (6-26); Blood Urea Nitrogen 21 mg/dL (8-23); Calcium 8.7 mg/dL (8.6-10.3); Carbon Dioxide 32 mEq/L (23-29); Chloride 100 mEq/L (98-107); Glucose 99 mg/dL (70-105); Magnesium 1.4 mg/dL (1.6-2.6); Osmolality,Calculated 287 (280-300); Potassium 3.7 mEq/L (3.5-5.1); Sodium 137 mEq/L (136-145); eGFR For African Americans > 60 (> 60); eGFR For Non-African Americans > 60 (> 60)
[2020-12-19] MEDS: Insulin LISPRO 300 UNITS/3 ML VIAL SUBQ SCH ×4 (07:46→20:44)
[2020-12-19] MEDS: Aspirin Enteric Coated 81 MG Tablet PO SCH (08:12)
[2020-12-19] MEDS: Sennosides 8.6 MG TABLET PO SCH ×2 (08:12→20:43)
[2020-12-19] MEDS: Cholecalciferol (D-3) 1,000 UNIT (25MCG) TABLET PO SCH (08:12)
[2020-12-19] MEDS: Finasteride 5 MG TABLET PO SCH (08:13)
[2020-12-19] MEDS: *HR* Metformin 500 MG TABLET PO SCH ×2 (08:13→20:43)
[2020-12-19] MEDS: Nystatin Ointment 15 GM TUBE TP SCH ×2 (08:13→20:44)
[2020-12-19] MEDS: Furosemide 20 MG TABLET PO SCH (08:13)
[2020-12-19] MEDS: Budesonide/Formoterol 160/4.5 1 PUFF INH IH SCH ×2 (10:23→19:14)
[2020-12-19] MEDS: Ipratropium 1 PUFF INHALER IH PRN ×2 (10:24→19:14)
[2020-12-19] MEDS: Melatonin 3 MG TABLET PO PRN (20:43)
[2020-12-19] MEDS: Mirtazapine 15 MG TABLET PO SCH (20:43)
[2020-12-20] MEDS: *HR* Enoxaparin 40 MG/0.4 ML SYRINGE SQ SCH (04:58)
[2020-12-20] MEDS: Insulin LISPRO 300 UNITS/3 ML VIAL SUBQ SCH ×4 (10:25→20:53)
[2020-12-20] MEDS: Furosemide 20 MG TABLET PO SCH (10:26)
[2020-12-20] MEDS: *HR* Metformin 500 MG TABLET PO SCH ×2 (10:26→20:43)
[2020-12-20] MEDS: Aspirin Enteric Coated 81 MG Tablet PO SCH (10:26)
[2020-12-20] MEDS: Sennosides 8.6 MG TABLET PO SCH ×2 (10:26→20:43)
[2020-12-20] MEDS: Cholecalciferol (D-3) 1,000 UNIT (25MCG) TABLET PO SCH (10:26)
[2020-12-20] MEDS: Finasteride 5 MG TABLET PO SCH (10:26)
[2020-12-20] MEDS: Nystatin Ointment 15 GM TUBE TP SCH ×2 (10:27→20:54)
[2020-12-20] MEDS: Budesonide/Formoterol 160/4.5 1 PUFF INH IH SCH ×2 (10:48→20:42)
[2020-12-20] MEDS: Melatonin 3 MG TABLET PO PRN (20:43)
[2020-12-20] MEDS: Magnesium Oxide 400 MG TABLET PO SCH (20:43)
[2020-12-20] MEDS: Mirtazapine 15 MG TABLET PO SCH (20:43)
[2020-12-21] MEDS: *HR* Enoxaparin 40 MG/0.4 ML SYRINGE SQ SCH (06:07)
[2020-12-21] MEDS: *HR* Metformin 500 MG TABLET PO SCH ×2 (09:50→20:02)
[2020-12-21] MEDS: Furosemide 20 MG TABLET PO SCH (09:50)
[2020-12-21] MEDS: Finasteride 5 MG TABLET PO SCH (09:50)
[2020-12-21] MEDS: Cholecalciferol (D-3) 1,000 UNIT (25MCG) TABLET PO SCH (09:50)
[2020-12-21] MEDS: Magnesium Oxide 400 MG TABLET PO SCH ×2 (09:50→20:02)
[2020-12-21] MEDS: Aspirin Enteric Coated 81 MG Tablet PO SCH (09:50)
[2020-12-21] MEDS: Sennosides 8.6 MG TABLET PO SCH ×2 (09:50→20:02)
[2020-12-21] MEDS: Insulin LISPRO 300 UNITS/3 ML VIAL SUBQ SCH ×4 (09:51→19:57)
[2020-12-21] MEDS: Nystatin Ointment 15 GM TUBE TP SCH ×2 (10:15→20:03)
[2020-12-21] MEDS: Budesonide/Formoterol 160/4.5 1 PUFF INH IH SCH ×2 (10:44→20:23)
[2020-12-21] MEDS: Ipratropium 1 PUFF INHALER IH PRN (10:44)
[2020-12-21] MEDS: Mirtazapine 15 MG TABLET PO SCH (20:02)
[2020-12-21] MEDS: Melatonin 3 MG TABLET PO PRN (21:43)
[2020-12-22 04:59] LABS: Hematocrit 31.9 % (37.5-50.1); Hemoglobin 10.2 g/dL (12.9-16.9); Mean Corpuscular Hemoglobin 31.9 pg (28.0-33.3); Mean Corpuscular Volume 99.7 fL (83.0-100.0); Red Cell Distribution Width 17.3 % (11.5-14.5); White Blood Count 5.1 K/mcL (4.3-11.1)
[2020-12-22 05:04] LABS: Platelet Count 80 K/mcL (140-400)
[2020-12-22 05:19] LABS: BUN/Creatinine Ratio 46 (6-26); Blood Urea Nitrogen 21 mg/dL (8-23); Calcium 8.6 mg/dL (8.6-10.3); Carbon Dioxide 31 mEq/L (23-29); Chloride 103 mEq/L (98-107); Glucose 114 mg/dL (70-105); Magnesium 1.3 mg/dL (1.6-2.6); Osmolality,Calculated 294 (280-300); Potassium 3.8 mEq/L (3.5-5.1); Sodium 140 mEq/L (136-145); eGFR For African Americans > 60 (> 60); eGFR For Non-African Americans > 60 (> 60)
[2020-12-22] MEDS: *HR* Enoxaparin 40 MG/0.4 ML SYRINGE SQ SCH (05:28)
[2020-12-22] MEDS: Insulin LISPRO 300 UNITS/3 ML VIAL SUBQ SCH ×4 (08:37→21:13)
[2020-12-22] MEDS: Aspirin Enteric Coated 81 MG Tablet PO SCH (08:44)
[2020-12-22] MEDS: Sennosides 8.6 MG TABLET PO SCH ×2 (08:45→20:06)
[2020-12-22] MEDS: Furosemide 20 MG TABLET PO SCH (08:45)
[2020-12-22] MEDS: Finasteride 5 MG TABLET PO SCH (08:45)
[2020-12-22] MEDS: *HR* Metformin 500 MG TABLET PO SCH ×2 (08:45→20:06)
[2020-12-22] MEDS: Magnesium Oxide 400 MG TABLET PO SCH ×2 (08:45→20:05)
[2020-12-22] MEDS: Cholecalciferol (D-3) 1,000 UNIT (25MCG) TABLET PO SCH (08:45)
[2020-12-22] MEDS: Nystatin Ointment 15 GM TUBE TP SCH ×2 (08:46→20:10)
[2020-12-22] MEDS: Budesonide/Formoterol 160/4.5 1 PUFF INH IH SCH ×2 (09:54→20:10)
[2020-12-22] MEDS: Ipratropium 1 PUFF INHALER IH PRN (09:55)
[2020-12-22] MEDS: Mirtazapine 15 MG TABLET PO SCH (20:05)
[2020-12-22] MEDS: Melatonin 3 MG TABLET PO PRN (20:07)
[2020-12-23] MEDS: *HR* Enoxaparin 40 MG/0.4 ML SYRINGE SQ SCH (06:29)
[2020-12-23] MEDS: Insulin LISPRO 300 UNITS/3 ML VIAL SUBQ SCH ×4 (08:02→21:03)
[2020-12-23] MEDS: Aspirin Enteric Coated 81 MG Tablet PO SCH (08:03)
[2020-12-23] MEDS: Cholecalciferol (D-3) 1,000 UNIT (25MCG) TABLET PO SCH (08:03)
[2020-12-23] MEDS: Furosemide 20 MG TABLET PO SCH (08:03)
[2020-12-23] MEDS: Finasteride 5 MG TABLET PO SCH (08:03)
[2020-12-23] MEDS: Sennosides 8.6 MG TABLET PO SCH ×2 (08:03→21:02)
[2020-12-23] MEDS: Magnesium Oxide 400 MG TABLET PO SCH ×2 (08:03→21:02)
[2020-12-23] MEDS: *HR* Metformin 500 MG TABLET PO SCH ×2 (08:03→21:02)
[2020-12-23] MEDS: Nystatin Ointment 15 GM TUBE TP SCH ×2 (08:04→21:03)
[2020-12-23] MEDS: Budesonide/Formoterol 160/4.5 1 PUFF INH IH SCH ×2 (10:08→21:58)
[2020-12-23] MEDS: Ipratropium 1 PUFF INHALER IH PRN ×2 (10:09→21:59)
[2020-12-23] MEDS ORDERED: Magnesium Oxide 400 MG TABLET PO ONE (18:16)
[2020-12-23] MEDS: Mirtazapine 15 MG TABLET PO SCH (21:01)
[2020-12-23] MEDS: Melatonin 3 MG TABLET PO PRN (21:02)
[2020-12-24] MEDS: *HR* Enoxaparin 40 MG/0.4 ML SYRINGE SQ SCH (06:13)
[2020-12-24] MEDS: Insulin LISPRO 300 UNITS/3 ML VIAL SUBQ SCH ×4 (07:44→21:21)
[2020-12-24] MEDS: Aspirin Enteric Coated 81 MG Tablet PO SCH (07:47)
[2020-12-24] MEDS: Furosemide 20 MG TABLET PO SCH (07:47)
[2020-12-24] MEDS: Finasteride 5 MG TABLET PO SCH (07:47)
[2020-12-24] MEDS: Magnesium Oxide 400 MG TABLET PO SCH ×2 (07:47→21:30)
[2020-12-24] MEDS: *HR* Metformin 500 MG TABLET PO SCH ×2 (07:47→21:26)
[2020-12-24] MEDS: Sennosides 8.6 MG TABLET PO SCH ×2 (07:47→21:25)
[2020-12-24] MEDS: Cholecalciferol (D-3) 1,000 UNIT (25MCG) TABLET PO SCH (07:47)
[2020-12-24] MEDS: Nystatin Ointment 15 GM TUBE TP SCH ×2 (07:48→21:30)
[2020-12-24] MEDS: Budesonide/Formoterol 160/4.5 1 PUFF INH IH SCH ×2 (08:51→22:06)
[2020-12-24] MEDS: Melatonin 3 MG TABLET PO PRN (21:26)
[2020-12-24] MEDS: Mirtazapine 15 MG TABLET PO SCH (21:26)
[2020-12-25] MEDS: *HR* Enoxaparin 40 MG/0.4 ML SYRINGE SQ SCH (06:33)
[2020-12-25 07:39] VITALS: BP 152/77
[2020-12-25] MEDS: Insulin LISPRO 300 UNITS/3 ML VIAL SUBQ SCH ×2 (07:56→12:39)
[2020-12-25] MEDS: Aspirin Enteric Coated 81 MG Tablet PO SCH (08:00)
[2020-12-25] MEDS: Magnesium Oxide 400 MG TABLET PO SCH (08:00)
[2020-12-25] MEDS: Furosemide 20 MG TABLET PO SCH (08:00)
[2020-12-25] MEDS: Finasteride 5 MG TABLET PO SCH (08:00)
[2020-12-25] MEDS: *HR* Metformin 500 MG TABLET PO SCH (08:00)
[2020-12-25] MEDS: Sennosides 8.6 MG TABLET PO SCH (08:00)
[2020-12-25] MEDS: Cholecalciferol (D-3) 1,000 UNIT (25MCG) TABLET PO SCH (08:00)
[2020-12-25] MEDS: Nystatin Ointment 15 GM TUBE TP SCH (08:01)
[2020-12-25] MEDS: Budesonide/Formoterol 160/4.5 1 PUFF INH IH SCH (09:37)
== END 2020-12-25 14:54 | DRG 177 ==
LOC: INPGRE 18:37
PROVIDERS: ADMIT Family Medicine; ATTEND Family Medicine